=== PATIENT | female | born 1980 | race Caucasian/White ===

== ENCOUNTER 2017-04-05 08:09 | Emergency (ER) | payer OTHER ==
[~2017-04-05] VITALS: Ht 154.9 cm; Wt 54.4 kg
[~2017-04-05 08:09] MED LIST: AUGMENTIN 875-1 EACH PO; IBUPROFEN800 M1 PO; IBUPROFEN800 MG PO; PERCOCET 325 MG1 TA2 PO
--- NOTE | 2017-04-05 08:27 | ED GI/GU/ABDOMINAL COMPLAINT ---
History of Present Illness General Chief Complaint: Female Urogenital Problems Stated Complaint: ?MISCARRIAGE APPROX 6 WEEKS PREG Source: patient Exam Limitations: no limitations Vital Signs & Intake/Output Vital Signs & Intake/Output ED Intake and Output 04/06 0000 05 1200 Intake Total Output Total Balance Patient 120 lb Weight Allergies Coded Allergies: cat pelt standardized allergenic ex (UNKNOWN 10/05/16) Uncoded Allergies: dust (UNKNOWN 01/12/13) trees (UNKNOWN 01/12/13) Reconcile Medications Pnv59/Iron,Carb&Fum/FA/Dss/Dha (Citranatal [place] Capsule) 27 MG IRON-1 MG-50 MG-260 MG CAPSULE 1 CAP PO DAILY VITAMIN SUPPORT (Reported) Triage Note: PT STATES THAT SHE IS 6 WEEKS , STRATED WITH LOW ABD CRAMPING LAST PM AND THIS AM WOKE WITH BLEEDING. CALLED HER OB AND WAS TOLD TO COME TO ER FOR EVAL. Triage Nurses Notes Reviewed? yes ? Y Is pt currently ? No Onset: Gradual Duration: hour(s): (2) Timing: no prior history Quality/Severity: cramping Severity Numbers: 4 Location: suprapubic Radiation: no radiation Activities at Onset: none Prior Abdominal Problems: none Sexually Active: Yes Last Time You Were Sexual: less than 2 months ago Sexual Orientation: Heterosexual No Modifying Factors: none HPI: Patient is a 36-year-old female presenting to the emergency department chief complaint vaginal bleeding that started this morning around 7:30 AM. She reports that she is 6 weeks . She has not had an ultrasound to confirm intrauterine . She reports mild lower abdominal cramping. No blood is bright red. She noticed in the toilet after urination. Patient also noticing it in her underwear after waking up. Denies lightheadedness or dizziness. No history of miscarriage in the past. She is not seen her SUPPLY SPECIALIST for this yet. She has been taking vitamins. Denies any urinary frequency or urgency or dysuria. No fevers or chills. No chest pain or shortness of breath. She called her SUPPLY SPECIALIST who directed her to come to the emergency department for evaluation. (DEMARCUS CASTILLO) Past History Travel History Traveled to [place] past 21 day No Medical History Any Pertinent Medical History? see below for history Neurological: NONE EENT: NONE Cardiovascular: NONE Respiratory: NONE Gastrointestinal: NONE Hepatic: NONE Renal: NONE Musculoskeletal: NONE Psychiatric: NONE Endocrine: NONE Blood Disorders: NONE Cancer(s): NONE INDUSTRIAL MAINTENANCE MILLWRIGHT/Reproductive: NONE Tetanus Vaccine: 10/03/16 Surgical History Surgical History: non-contributory Psychosocial History What is your primary language Irish Tobacco Use: Never used ETOH Use: denies use Illicit Drug Use: denies illicit drug use Family History Hx Contributory? No (DEMARCUS CASTILLO) Review of Systems Review of Systems Constitutional: Reports: no symptoms. Comments Review of systems: See HPI, All other systems negative. Constitutional, no chills fever or weight loss HEENT: No visual changes no sore throat no congestion Cardiovascular: No chest pain ,palpitation , orthopnea or ankle swelling Skin, no jaundice no rashes Respiratory: No dyspnea cough sputum or hemoptysis GI: No nausea no vomiting : No dysuria No hematuria Muscle skeletal: no back pain, no neck pain, Neurologic: No numbness no confusion Psych: No stress anxiety or depression,. Heme/endocrine: No bruising no bleeding no polyuria or polydipsia Immunology: No splenectomy or history of AIDS (DEMARCUS CASTILLO) Physical Exam Physical Exam General Appearance: well developed/nourished, no apparent distress, alert, awake , comfortable Gastrointestinal: normal bowel sounds, soft, non-tender Comments: Well-developed well-nourished person in no acute distress HEENT: No pallor noted to palpable conjunctiva bilaterally. Pupils equally round and reactive to light and accommodation. Nose is atraumatic. Neck: Normal inspection Back: Nontender Cardiovascular: Regular rate and rhythms no murmurs rubs or gallops, normal JVP Respiratory: Chest nontender. No respiratory distress.breath sounds clear to auscultation bilaterally Abdomen: Soft, nontender nondistended, no appreciable organomegaly. Normal bowel sounds. No ascites, no rebound or guarding. Extremity: No edema Neuro: Alert oriented x3 Skin: No appreciable rash on exposed skin, skin is warm and dry. Psych: Mood and affect is normal, memory and judgment is normal. Core Measures ACS in differential dx? No Severe Sepsis Present: No Septic Shock Present: No (DEMARCUS CASTILLO) Progress Differential Diagnosis: UTI/pyelo, INTRAUTERINE PREG, ECTOPIC ANEMIA, THREATENED Plan of Care: Orders Procedure Date/time Status Add-on Test (ER Only) 04/05 1035 Active CULTURE,URINE 04/05 1000 Active URINALYSIS 04/05 812 Complete HUMAN BETA HCG TITRE 04/05 812 Complete COMPREHENSIVE METABOLIC PANEL 04/05 812 Complete CBC WITHOUT DIFFERENTIAL 04/05 812 Complete RHOGAM WORK-UP 04/05 812 Complete Laboratory Tests 04/05/17 1000: Urinalysis LIGHT H, Urine Color YEL, Urine Clarity CLEAR, Urine pH 7.0, Ur Specific [place] 1.010, Urine Protein NEG, Urine Ketones NEG, Urine Nitrite NEG, Urine Bilirubin NEG, Urine Urobilinogen 0.2, Ur Leukocyte Esterase NEG, Ur Microscopic SEDIMENT EXAMINED, Urine RBC 3-5, Urine WBC 1-3 H, Ur Epithelial Cells MANY H, Urine Bacteria MOD H, Urine Hemoglobin MOD H, Urine Glucose NEG 04/05/17 0830: CBC w Diff NO MAN DIFF REQ, RBC 4.54, MCV 83.4, MCH 27.4, RDW 13.1, MPV 7.6, Gran % 63.8, Lymphocytes % 26.3, Monocytes % 7.6, Eosinophils % 1.8, Basophils % 0.5, Absolute Granulocytes 4.9, Absolute Lymphocytes 2.0, Absolute Monocytes 0.6 , Absolute Eosinophils 0.1, Absolute Basophils 0, PUBS MCHC 32.8 L 04/05/17 08: Anion Gap 9, Estimated GFR > 60, BUN/Creatinine Ratio 17.1, Glucose 98, Calcium 8.6, Total Bilirubin 1.1, AST 25, ALT 35, Alkaline Phosphatase 48, Total Protein 6.9, Albumin 4.0, Globulin 2.9, Albumin/Globulin Ratio 1.4, Beta HCG, Quant 231.1 Microbiology 04/05 1000 URINE ROUT: Urine Culture - RECD Diagnostic Imaging: Viewed by Me: Ultrasound. Discussed w/RAD: Ultrasound. Radiology Impression: PATIENT: PRESTON DACOSTA PRESENT AGE: 36 PATIENT ACCOUNT NO: [id number] : 81 LOCATION: [facility] ORDERING PHYSICIAN: DEMARCUS MONTANO SERVICE DATE: 04/05/17 EXAM TYPE: US - US- VIABILITY EXAMINATION: US PELVIS COMPLETE CLINICAL INFORMATION: 6 weeks with the pelvic pain and bleeding; for assessment for viability; the last menstrual period was on 02/22/2017. COMPARISON: None. TECHNIQUE: Transabdominal and transvaginal imaging were performed. FINDINGS: The uterus is of normal size and echogenicity measuring 12.9 x 5.0 x 7.8 cm. A mildly heterogeneous endometrium is identified measuring 1.3 cm. There is no gestational sac or decidual reaction seen. FIBROIDS: There is 1 fibroid seen. 1. Location: Posterior rightward mid uterine body, myometrial. Size: 1.7 x 1.1 x 1.7 cm. Fibroid characteristics: Hypoechoic Both ovaries are of normal size and echogenicity. The right measures 3.6 x 2.0 x 2.1 cm for a volume of 7.9 mL. There is a 1.6 x 0.9 x 1.6 cm right ovarian resolving corpus luteum cyst. The left measures 3.0 x 1.5 x 1.7 cm for a volume of 4.0 mL. There is trace nonspecific pelvic free fluid. No adnexal mass is seen. There is no tubal ring sign. There is prominent bilateral adnexal vasculature. IMPRESSION: 1. No intrauterine or ectopic is seen. There is no decidual reaction. Recommend Obstetrical evaluation and management, with consideration for follow-up ultrasound imaging and serum beta hCG levels, as clinically indicated. 2. A small uterine fibroid is seen, as detailed. 3. There is a 1.6 cm resolving right ovarian corpus luteum cyst. 4. There is prominent adnexal vasculature, suggesting possible pelvic congestion syndrome. DICTATED BY: BORA RANKIN MD DATE/TIME DICTATED:04/05/171017 Initial ED EKG: none Comments: Declines pain medication on arrival. Concern for threatened . Patient informed of all lab work results and ultrasound results. Likely . Patient will follow up with SUPPLY SPECIALIST next week for repeat hCG level and repeat ultrasound. Discussed with Dr. Sam and she agrees with plan. (SESAR MONTANO,DEMARCUS) Departure Departure Time of Disposition: 1058 Disposition: HOME OR SELF CARE Condition: Stable Clinical Impression Primary Impression: Threatened miscarriage Referrals: KIZZY PAYTON MD (PCP/Family) Additional Instructions: Follow-up with your SUPPLY SPECIALIST next week, they will likely needs a repeat ultrasound and repeat hormone levels. Increase her fluid. Take Tylenol as directed for any cramping or pain. Return for worsening symptoms or concerns. Departure Forms: Customer Survey General Discharge Information (DEMARCUS CASTILLO) PA/PREPARATION PLANT REPAIRER Co-Sign Statement Statement: ED Attending supervision documentation- [] I saw and evaluated the patient. I have also reviewed all the pertinent lab results and diagnostic results. I agree with the findings and the plan of care as documented in the PA's/PREPARATION PLANT REPAIRER's documentation. [X] I have reviewed the ED Record and agree with the PA's/PREPARATION PLANT REPAIRER's documentation. [] Additions or exceptions (if any) to the PAs/PREPARATION PLANT REPAIRER's note and plan are summarized below: [] (CLAUS GRESHAM,CHOLO)
[2017-04-05] MEDS ORDERED: CITRANATAL HAR1 EACH PO (08:36)
[2017-04-05 08:47] LABS: ABSOLUTE BASOPHIL COUNT 0 /CUMM (0.0-0.2); ABSOLUTE EOSINOPHIL COUNT 0.1 /CUMM (0.0-0.7); ABSOLUTE GRANULOCYTE CT 4.9 /CUMM (1.4-6.5); BASOPHIL % 0.5 % (0.0-2.0); MEAN PLATELET VOLUME 7.6 FL (7.4-10.4)
[2017-04-05 08:51] LABS: ABSOLUTE MONOCYTE COUNT 0.6 /CUMM (0.10-0.60); EOSINOPHIL % 1.8 % (0-5); GRANULOCYTE % 63.8 % (42.2-75.2); HEMATOCRIT 37.9 % (37-47); MEAN CORPUSCULAR HGB 27.4 PG (27.0-31.0); MEAN CORPUSCULAR HGB CONC 32.8 G/DL (33.0-37.0); MEAN CORPUSCULAR VOLUME 83.4 FL (81.0-99.0); PLATELET COUNT 244 /CUMM (130-400); RBC DISTRIBUTION WIDTH 13.1 % (11.5-14.5); RED BLOOD CELL CT 4.54 /CUMM (4.20-5.40); WHITE BLOOD CELL COUNT 7.6 /CUMM (4.8-10.8)
--- NOTE | 2017-04-05 10:44 | ULTRASOUND REPORT ---
EXAMINATION: US PELVIS COMPLETE CLINICAL INFORMATION: 6 weeks with the pelvic pain and bleeding; for assessment for viability; the last menstrual period was on 02/22/2017. COMPARISON: None. TECHNIQUE: Transabdominal and transvaginal imaging were performed. FINDINGS: The uterus is of normal size and echogenicity measuring 12.9 x 5.0 x 7.8 cm. A mildly heterogeneous endometrium is identified measuring 1.3 cm. There is no gestational sac or decidual reaction seen. FIBROIDS: There is 1 fibroid seen. 1. Location: Posterior rightward mid uterine body, myometrial. Size: 1.7 x 1.1 x 1.7 cm. Fibroid characteristics: Hypoechoic Both ovaries are of normal size and echogenicity. The right measures 3.6 x 2.0 x 2.1 cm for a volume of 7.9 mL. There is a 1.6 x 0.9 x 1.6 cm right ovarian resolving corpus luteum cyst. The left measures 3.0 x 1.5 x 1.7 cm for a volume of 4.0 mL. There is trace nonspecific pelvic free fluid. No adnexal mass is seen. There is no tubal ring sign. There is prominent bilateral adnexal vasculature. IMPRESSION: 1. No intrauterine or ectopic is seen. There is no decidual reaction. Recommend Obstetrical evaluation and management, with consideration for follow-up ultrasound imaging and serum beta hCG levels, as clinically indicated. 2. A small uterine fibroid is seen, as detailed. 3. There is a 1.6 cm resolving right ovarian corpus luteum cyst. 4. There is prominent adnexal vasculature, suggesting possible pelvic congestion syndrome.
[2017-04-05 11:05] VITALS: BP 110/57
== END 2017-04-05 11:37 ==
LOC: ERH 08:09
PROVIDERS: Physician Assistant
DX: O20.0 Threatened abortion (principal)
CPT/HCPCS: 81001; 87086

== ENCOUNTER → 2018-05-16 | Day surgery (SDC) | payer OTHER ==
[~2018-05-16] VITALS: Ht 154.9 cm; Wt 56.7 kg
[~2018-05-16] MED LIST changes: +CITRANATAL HAR1 EACH PO
--- NOTE | 2018-05-16 12:41 | Operative Report ---
Operative/Inv Procedure Report Surgery Date: 05/16/18 Name of Procedure: Suction D&C Pre-Operative Diagnosis: Missed Post-Operative Diagnosis: Same Estimated Blood Loss: 50ml to 100ml Surgeon/Form Layer: Valerie Clifford MD Anesthesia: moderate sedation Operative/Procedure Note Note: Taken out patient was taken the operating room placed on position after adequate anesthesia patient placed in dorsolithotomy position vagina from dorsal fashion bladder was catheterized examination under anesthesia performed single-tooth tenaculum placed on the Intralipid surgeons down traction cervix was dilated 29 Hegar to left insertion of a sharp curet sharp curettage of the Endo lining was performed at this point a suction curettage was performed specimen was sent to pathology sharp curettage was the last curettage of the uterus which demonstrated positive uterine cri. Patient tolerated that well hemostasis was apparent patient received intravenous Pitocin for uterine contractility patient tolerated that well all instruments removed from vagina patient was returned spine position awakened from anesthesia and transferred recovery room awake alert counts correct Findings: Findings consistent with POC
== END ==
LOC: STS 03:29
DX: O02.1 Missed abortion (principal); K51.90 Ulcerative colitis, unspecified, without complications; J45.909 Unspecified asthma, uncomplicated
CPT/HCPCS: 88261; J0131; J1885; J2250